=== PATIENT | female | born 1960 | race Caucasian/White ===

== ENCOUNTER 2020-05-18 06:38 | Inpatient (IN) ==
[2020-05-18] MEDS ORDERED: Acetaminophen 325 MG TABLET PO PRN (11:14)
[2020-05-18] MEDS ORDERED: Ondansetron 4 MG/2 ML VIAL IVP PRN (11:14)
[2020-05-18] MEDS ORDERED: Dextrose Gel 15 GM/37.5 ML TUBE PO PRN ×2 (11:14)
[2020-05-18] MEDS ORDERED: D5% in Water 1,000 ML IVC PRN (11:14)
[2020-05-18] MEDS ORDERED: *HR* Dextrose 50 % in Water (Vial) 50 ML VIAL IVP PRN (11:14)
[2020-05-18] MEDS ORDERED: Naloxone 0.4 MG/ML INJ IVP PRN (11:14)
[2020-05-18 12:36] LABS: Hemoglobin 7.2 g/dL (11.5-15.4); Monocytes % 5.8 %
[2020-05-18 12:38] LABS: Hematocrit 23.2 % (35.3-44.9); Immature Granulocytes % 0.6 % (0-4); Immature Platelets 6.6 % (1.1-6.1); Lymphocytes # 0.5 K/mcL (0.6-4.6); Mean Corpuscular Hemoglobin 32.6 pg (28.0-33.3); Mean Platelet Volume 11.3 fL (9.4-12.4); Monocytes # 0.5 K/mcL (0.0-1.3); Platelet Count 103 K/mcL (140-400); Red Blood Count 2.21 M/mcL (3.82-4.97); Red Cell Distribution Width 14.1 % (11.5-14.5); Segmented Neutrophils % 88.6 %
[2020-05-18 12:49] LABS: Calcium 8.6 mg/dL (8.6-10.3); Potassium 5.8 mEq/L (3.5-5.1)
[2020-05-18 12:54] LABS: INR 4.9; Prothrombin Time 54.2 Seconds (9.4-12.1)
[2020-05-18] MEDS: Insulin LISPRO 300 UNITS/3 ML VIAL SUBQ SCH ×2 (13:08→16:36)
[2020-05-18] MEDS: SODIUM ZIRCONIUM CYCLOSILICATE 5 GM POWD.PACK PO SCH (17:07)
[2020-05-18 17:28] LABS: Uric Acid 11.2 mg/dL (2.3-7.6)
[2020-05-18] MEDS: Insulin DETEMIR 100 UNIT/ML X5UNITS SUBQ SCH (20:52)
[2020-05-19 01:59] LABS: Sodium, Urine 66.5 mEq/L
[2020-05-19 02:07] LABS: Clarity,Urine Turbid (Clear); Color,Urine Yellow (Yellow)
[2020-05-19 02:08] LABS: Bilirubin,Urine Negative (Negative); Blood,Urine Trace (Negative); Glucose,Urine (UA) Normal (Normal); Ketones,Urine Negative (Negative); PH,Urine 7.5 pH Units (5.0-8.0); Specific Gravity,Urine < 1.005 (1.010-1.025)
[2020-05-19 02:09] LABS: Leukocyte Esterase,Urine Large (Negative); Nitrite,Urine Negative (Negative); Protein,Urine >=300 mg/dL (Neg-Trace); RBC,Urine 0-3 per hpf (0-3); WBC,Urine TNTC per hpf (0-3)
[2020-05-19 02:10] LABS: Bacteria,Urine Many per hpf (None-Few); Squamous Epithelial Cell,Urine Many per hpf (None-Few); Transitional Epi Cells,Urine Few per hpf (None-Few)
[2020-05-19 05:52] LABS: INR 6.9; Prothrombin Time 75.7 Seconds (9.4-12.1)
[2020-05-19 05:54] LABS: Hematocrit 23.4 % (35.3-44.9); Hemoglobin 7.4 g/dL (11.5-15.4); Mean Corpuscular HGB Conc 31.6 g/dL (31.6-35.5); Mean Corpuscular Hemoglobin 32.7 pg (28.0-33.3); Mean Corpuscular Volume 103.5 fL (83.0-100.0); Mean Platelet Volume 11.6 fL (9.4-12.4); Platelet Count 107 K/mcL (140-400); Red Blood Count 2.26 M/mcL (3.82-4.97); Red Cell Distribution Width 13.8 % (11.5-14.5)
[2020-05-19 06:06] LABS: Calcium 8.2 mg/dL (8.6-10.3); Potassium 5.7 mEq/L (3.5-5.1)
[2020-05-19] MEDS ORDERED: Saline Nasal Spray 44 ML BOTTLE NS PRN (07:52)
[2020-05-19] MEDS ORDERED: Melatonin 3 MG TABLET PO PRN (07:52)
[2020-05-19 09:35] LABS: Phosphorous 6.6 mg/dL (2.7-4.5)
[2020-05-19] MEDS: Artificial Tears SOLN 15 ML BOTTLE BOTH EYES SCH ×2 (09:39→20:33)
[2020-05-19] MEDS: Insulin LISPRO 300 UNITS/3 ML VIAL SUBQ SCH ×3 (09:39→18:33)
[2020-05-19] MEDS: Insulin DETEMIR 100 UNIT/ML X5UNITS SUBQ SCH ×2 (09:40→20:29)
[2020-05-19] MEDS: Multivit/Ca/Min/Fe/FA 1 TAB TABLET PO SCH (09:41)
[2020-05-19] MEDS: cefTRIAXone 1,000 MG in 0.9 % Sodium Chloride Mini Bag 100 ML IVPB SCH (09:41)
[2020-05-19 10:22] LABS: ABG Base Excess -2 mEq/L (-2 to 3); ABG HCO3 26 mEq/L (21-27); ABG Oxygen Saturation 86 % (95-98); ABG PCO2 61 mmHg (35-45); ABG PH 7.24 pH Units (7.32-7.45); ABG PO2 62 mmHg (85-104); ABG TCO2 28 mEq/L (20-26)
[2020-05-19] MEDS: Ipratropium 1 PUFF INHALER IH SCH ×5 (10:25→23:12)
[2020-05-19] MEDS: Budesonide/Formoterol 160/4.5 1 PUFF INH IH SCH ×2 (10:25→19:46)
[2020-05-19] MEDS: SODIUM ZIRCONIUM CYCLOSILICATE 5 GM POWD.PACK PO SCH (11:57)
[2020-05-19] MEDS ORDERED: 0.9 % Sodium Chloride 250 ML ONE (13:04)
[2020-05-19] MEDS ORDERED: carvediloL 6.25 MG TABLET PO SCH (17:00)
[2020-05-19] MEDS ORDERED: *HR* Phytonadione 5 MG TABLET PO ONE (20:33)
[2020-05-19] MEDS: Azithromycin 250 MG TABLET PO SCH (20:38)
[2020-05-20] MEDS: Ipratropium 1 PUFF INHALER IH SCH ×5 (03:16→19:57)
[2020-05-20 06:00] LABS: Estimated Average Glucose 249 mg/dl; Hemoglobin A1C 10.3 %
[2020-05-20 06:04] LABS: INR 7.2; Prothrombin Time 78.5 Seconds (9.4-12.1)
[2020-05-20 06:17] LABS: Albumin 2.8 g/dL (3.5-5.7); Albumin/Globulin Ratio 0.7 (1.1-2.2); Bilirubin,Total 0.5 mg/dL (0.3-1.0); Calcium 8.1 mg/dL (8.6-10.3); Magnesium 2.1 mg/dL (1.6-2.6); Phosphorous 5.8 mg/dL (2.7-4.5); Potassium 5.6 mEq/L (3.5-5.1); Total Protein 6.8 g/dL (6.4-8.9)
[2020-05-20 06:26] LABS: Hematocrit 26.7 % (35.3-44.9); Hemoglobin 8.5 g/dL (11.5-15.4); Immature Granulocytes % 0.6 % (0-4); Lymphocytes % 2.6 %; Mean Corpuscular HGB Conc 31.8 g/dL (31.6-35.5); Mean Corpuscular Hemoglobin 32.2 pg (28.0-33.3); Mean Corpuscular Volume 101.1 fL (83.0-100.0); Mean Platelet Volume 11.5 fL (9.4-12.4); Monocytes % 3.3 %; Platelet Count 123 K/mcL (140-400); Red Blood Count 2.64 M/mcL (3.82-4.97); Red Cell Distribution Width 14.6 % (11.5-14.5); Segmented Neutrophils % 93.3 %; White Blood Count 11.3 K/mcL (4.3-11.1)
[2020-05-20 06:27] LABS: Basophils % 0.2 %; Lymphocytes # 0.3 K/mcL (0.6-4.6); Monocytes # 0.4 K/mcL (0.0-1.3); Neutrophils # 10.6 K/mcL (1.6-8.9)
[2020-05-20] MEDS: Budesonide/Formoterol 160/4.5 1 PUFF INH IH SCH ×2 (07:30→19:58)
[2020-05-20] MEDS: Azithromycin 250 MG TABLET PO SCH (08:03)
[2020-05-20] MEDS: Multivit/Ca/Min/Fe/FA 1 TAB TABLET PO SCH (08:03)
[2020-05-20] MEDS: ARIPiprazole 10 MG TABLET PO SCH (08:05)
[2020-05-20] MEDS: lamoTRIgine 100 MG TABLET PO SCH (08:08)
[2020-05-20] MEDS: SODIUM ZIRCONIUM CYCLOSILICATE 5 GM POWD.PACK PO SCH (08:16)
[2020-05-20] MEDS: cefTRIAXone 1,000 MG in 0.9 % Sodium Chloride Mini Bag 100 ML IVPB SCH (08:18)
[2020-05-20] MEDS: Artificial Tears SOLN 15 ML BOTTLE BOTH EYES SCH ×2 (08:19→21:42)
[2020-05-20] MEDS: Insulin LISPRO 300 UNITS/3 ML VIAL SUBQ SCH ×4 (08:20→17:13)
[2020-05-20] MEDS: Insulin DETEMIR 100 UNIT/ML X5UNITS SUBQ SCH ×2 (08:21→21:59)
[2020-05-20] MEDS ORDERED: amLODIPine 5 MG TABLET PO SCH (09:00)
[2020-05-21] MEDS: Ipratropium 1 PUFF INHALER IH SCH ×4 (03:41→22:24)
[2020-05-21] MEDS: Budesonide/Formoterol 160/4.5 1 PUFF INH IH SCH ×2 (07:44→22:26)
[2020-05-21] MEDS: cefTRIAXone 1,000 MG in 0.9 % Sodium Chloride Mini Bag 100 ML IVPB SCH (07:48)
[2020-05-21] MEDS: Multivit/Ca/Min/Fe/FA 1 TAB TABLET PO SCH (07:53)
[2020-05-21] MEDS: Azithromycin 250 MG TABLET PO SCH (07:53)
[2020-05-21] MEDS: ARIPiprazole 10 MG TABLET PO SCH (07:53)
[2020-05-21] MEDS: SODIUM ZIRCONIUM CYCLOSILICATE 5 GM POWD.PACK PO SCH (07:54)
[2020-05-21] MEDS: lamoTRIgine 100 MG TABLET PO SCH (07:54)
[2020-05-21] MEDS: Insulin LISPRO 300 UNITS/3 ML VIAL SUBQ SCH ×7 (07:57→20:09)
[2020-05-21] MEDS: Insulin DETEMIR 100 UNIT/ML X5UNITS SUBQ SCH ×2 (08:00→19:46)
[2020-05-21] MEDS: Artificial Tears SOLN 15 ML BOTTLE BOTH EYES SCH ×2 (08:32→22:06)
[2020-05-21 09:22] LABS: Hematocrit 27.6 % (35.3-44.9); Hemoglobin 8.8 g/dL (11.5-15.4); Immature Granulocytes % 0.6 % (0-4); Lymphocytes # 0.4 K/mcL (0.6-4.6); Lymphocytes % 4.3 %; Mean Corpuscular HGB Conc 31.9 g/dL (31.6-35.5); Mean Corpuscular Hemoglobin 32.1 pg (28.0-33.3); Mean Corpuscular Volume 100.7 fL (83.0-100.0); Mean Platelet Volume 11.1 fL (9.4-12.4); Monocytes # 0.3 K/mcL (0.0-1.3); Monocytes % 3.7 %; Platelet Count 154 K/mcL (140-400); Red Blood Count 2.74 M/mcL (3.82-4.97); Red Cell Distribution Width 14.6 % (11.5-14.5); Segmented Neutrophils % 91.4 %; White Blood Count 8.7 K/mcL (4.3-11.1)
[2020-05-21 09:30] LABS: INR 2.1; Prothrombin Time 23.5 Seconds (9.4-12.1)
[2020-05-21 09:41] LABS: % Iron Saturation 14 % (15-50); Iron 20 mcg/dL (50-170); Transferrin 102 mg/dL (203-362)
[2020-05-21 09:44] LABS: Albumin 2.8 g/dL (3.5-5.7); Albumin/Globulin Ratio 0.6 (1.1-2.2); Bilirubin,Total 0.5 mg/dL (0.3-1.0); Calcium 8.4 mg/dL (8.6-10.3); Globulin 4.4 g/dL (2.4-3.5); Magnesium 2.1 mg/dL (1.6-2.6); Phosphorous 5.6 mg/dL (2.7-4.5); Potassium 4.6 mEq/L (3.5-5.1); Total Protein 7.2 g/dL (6.4-8.9)
[2020-05-21 10:07] LABS: Folate 8.9 ng/mL (3.0-16.0)
[2020-05-21] MEDS: *HR* OxyCODONE/APAP 7.5/325 TABLET PO PRN ×2 (12:02→19:45)
[2020-05-21] MEDS ORDERED: Iron Sucrose Complex 400 MG in 0.9 % Sodium Chloride 250 ML IVPB ONE (14:45)
[2020-05-22 01:32] LABS: Hematocrit 27.3 % (35.3-44.9); Hemoglobin 8.7 g/dL (11.5-15.4); Immature Granulocytes % 0.5 % (0-4); Lymphocytes # 0.3 K/mcL (0.6-4.6); Mean Corpuscular HGB Conc 31.9 g/dL (31.6-35.5); Mean Corpuscular Hemoglobin 31.9 pg (28.0-33.3); Mean Platelet Volume 11.2 fL (9.4-12.4); Monocytes # 0.5 K/mcL (0.0-1.3); Monocytes % 6.2 %; Neutrophils # 7.4 K/mcL (1.6-8.9); Platelet Count 146 K/mcL (140-400); Red Blood Count 2.73 M/mcL (3.82-4.97); Red Cell Distribution Width 14.2 % (11.5-14.5); Segmented Neutrophils % 89.3 %; White Blood Count 8.2 K/mcL (4.3-11.1)
[2020-05-22 01:36] LABS: INR 2.1; Prothrombin Time 24.1 Seconds (9.4-12.1)
[2020-05-22 01:59] LABS: Albumin 2.6 g/dL (3.5-5.7); Albumin/Globulin Ratio 0.6 (1.1-2.2); Bilirubin,Total 0.4 mg/dL (0.3-1.0); Calcium 8.5 mg/dL (8.6-10.3); Globulin 4.3 g/dL (2.4-3.5); Magnesium 2.1 mg/dL (1.6-2.6); Phosphorous 5.7 mg/dL (2.7-4.5); Potassium 4.8 mEq/L (3.5-5.1); Total Protein 6.9 g/dL (6.4-8.9)
[2020-05-22] MEDS: Ipratropium 1 PUFF INHALER IH SCH ×4 (04:21→22:45)
[2020-05-22] MEDS: Insulin DETEMIR 100 UNIT/ML X5UNITS SUBQ SCH ×2 (07:41→22:13)
[2020-05-22] MEDS: Insulin LISPRO 300 UNITS/3 ML VIAL SUBQ SCH ×7 (07:41→22:10)
[2020-05-22] MEDS: ARIPiprazole 10 MG TABLET PO SCH (07:42)
[2020-05-22] MEDS: Multivit/Ca/Min/Fe/FA 1 TAB TABLET PO SCH (07:43)
[2020-05-22] MEDS: Azithromycin 250 MG TABLET PO SCH (07:45)
[2020-05-22] MEDS: lamoTRIgine 100 MG TABLET PO SCH (07:45)
[2020-05-22] MEDS: cefTRIAXone 1,000 MG in 0.9 % Sodium Chloride Mini Bag 100 ML IVPB SCH (07:46)
[2020-05-22] MEDS: SODIUM ZIRCONIUM CYCLOSILICATE 5 GM POWD.PACK PO SCH (07:46)
[2020-05-22] MEDS: Artificial Tears SOLN 15 ML BOTTLE BOTH EYES SCH ×2 (07:49→22:10)
[2020-05-22] MEDS: Budesonide/Formoterol 160/4.5 1 PUFF INH IH SCH ×2 (10:34→22:45)
[2020-05-22] MEDS: *HR* OxyCODONE/APAP 7.5/325 TABLET PO PRN (22:30)
[2020-05-23] MEDS: Ipratropium 1 PUFF INHALER IH SCH ×2 (03:32→10:25)
[2020-05-23] MEDS: Insulin DETEMIR 100 UNIT/ML X5UNITS SUBQ SCH (08:27)
[2020-05-23] MEDS: Insulin LISPRO 300 UNITS/3 ML VIAL SUBQ SCH ×4 (08:27→12:18)
[2020-05-23] MEDS: lamoTRIgine 100 MG TABLET PO SCH (08:28)
[2020-05-23] MEDS: Multivit/Ca/Min/Fe/FA 1 TAB TABLET PO SCH (08:28)
[2020-05-23] MEDS: Azithromycin 250 MG TABLET PO SCH (08:29)
[2020-05-23] MEDS: SODIUM ZIRCONIUM CYCLOSILICATE 5 GM POWD.PACK PO SCH (08:29)
[2020-05-23] MEDS: ARIPiprazole 10 MG TABLET PO SCH (08:29)
[2020-05-23] MEDS: Artificial Tears SOLN 15 ML BOTTLE BOTH EYES SCH (08:30)
[2020-05-23] MEDS: cefTRIAXone 1,000 MG in 0.9 % Sodium Chloride Mini Bag 100 ML IVPB SCH (08:30)
[2020-05-23 08:33] LABS: Hematocrit 33.1 % (35.3-44.9); Mean Platelet Volume 11.4 fL (9.4-12.4); Platelet Count 186 K/mcL (140-400); Red Blood Count 3.31 M/mcL (3.82-4.97)
[2020-05-23 08:34] LABS: Hemoglobin 10.6 g/dL (11.5-15.4)
[2020-05-23 08:45] VITALS: BP 154/74
[2020-05-23 08:51] LABS: Calcium 8.9 mg/dL (8.6-10.3)
[2020-05-23] MEDS: Budesonide/Formoterol 160/4.5 1 PUFF INH IH SCH (10:26)
[2020-05-23] MEDS ORDERED: *HR* Warfarin 2.5 MG TABLET PO STA (12:46)
[2020-05-23 14:03] LABS: Prothrombin Time 22.3 Seconds (9.4-12.1)
== END 2020-05-23 16:12 | disposition home or self-care (01) | DRG 177 ==
LOC: SUATTDRO 10:35 → 2NENU 10:35
PROVIDERS: ADMIT Family Medicine; ATTEND Internal Medicine